=== PATIENT | female | born 1985 | race Two or more races ===

== ENCOUNTER → 2019-06-18 | Emergency (ER) | payer OTHER ==
[~2019-06-18] VITALS: Ht 162.6 cm; Wt 59.0 kg
[2019-06-18 16:20] VITALS: BP 118/74
--- NOTE | 2019-06-18 16:20 | NUR ---
ED Nurse Note: pt brought in by ambulance assisted by [employer] due to behavior complaints. pt c/o Lt foot pain 03/07. per [employer] pt was running around street. pt aao x4 and ambulatory. skin clean and intact. pt is refusing to speak, however, pt says yes or no only.
--- NOTE | 2019-06-18 16:21 | NUR ---
HAND-OFF: Report given to XIMENA Garcia to start the care.
--- NOTE | 2019-06-18 17:14 | Emergency Room Report ---
History of Present Illness General Chief Complaint: Lower Back Pain or Injury Source: Patient Present Illness HPI 34 YO Female presents to the ED c/O in severity right foot pain during initial triage. During exam and evaluation pt. denies pain in the foot, states it was stepped on but it is no longer hurting her. pt. denies medical complaints other than right ear discomfort and reports frequently having clogged ears and using OTC ear drops. denies fevers or chills. Denies CP or SOB. Denies open wounds or bleeding. Denies YARBROUGH, Neck or back pain or abdominal pain. Denies changes to or loss of hearing. Denies ear trauma. Allergies: Coded Allergies: NO KNOWN DRUG ALLERGIES (Unverified Allergy, Unknown, 03/14/15) Patient History Past Medical History: see triage record Past Surgical History: none Pertinent Family History: none Now: No Reviewed Nursing Documentation: PMH: Agreed; PSxH: Agreed Nursing Documentation-PMH Past Medical History: No Stated History Hx Cardiac Problems: No Hx Hypertension: No Hx Pacemaker: No Hx Asthma: No Hx COPD: No Hx Diabetes: No Hx Cancer: No Hx Gastrointestinal Problems: No Hx Dialysis: No Hx Neurological Problems: No Hx Cerebrovascular Accident: No Hx Seizures: No Review of Systems All Other Systems: negative except mentioned in HPI Physical Exam Vital Signs Date Time Temp Pulse Resp B/P (MAP) Pulse Ox O2 Delivery O2 Flow Rate FiO2 06/18/19 16:09 98.4 86 16 118/74 (89) 100 Room Air Sp02 EP Interpretation: reviewed, normal General Appearance: no apparent distress, alert, GCS 15, non-toxic Head: normocephalic, atraumatic Eyes: bilateral eye normal inspection, bilateral eye PERRL ENT: hearing grossly normal, normal voice, TMs + canals normal Neck: full range of motion, no bony tend Respiratory: chest non-tender, lungs clear, normal breath sounds, no respiratory distress, no accessory muscle use, no wheezing, speaking full sentences Cardiovascular #1: regular rate, rhythm, normal capillary refill Gastrointestinal: non tender, soft Musculoskeletal: back normal, gait/station normal, normal range of motion, non- tender Neurologic: alert, oriented x3, responsive, motor strength/tone normal, sensory intact, speech normal, grossly normal Psychiatric: judgement/insight normal Skin: normal inspection Medical Decision Making PA Attestation Dr. Whatley is my supervising Physician whom patient management has been discussed with. Diagnostic Impression: Primary Impression: Medical clearance for incarceration ER Course 34 YO Female presents to the ED c/O in severity right foot pain during initial triage. During exam and evaluation pt. denies pain in the foot, states it was stepped on but it is no longer hurting her. pt. denies medical complaints other than right ear discomfort and reports frequently having clogged ears and using OTC ear drops. denies fevers or chills. Denies CP or SOB. Denies open wounds or bleeding. Denies YARBR[place], Neck or back pain or abdominal pain. Denies changes to or loss of hearing. Denies ear trauma. Ddx considered but are not limited to Head Trauma, [place], ACS, SI/HI, URI, SAH, Fractures, Dislocations, Tazer barbs, Abrasions. Vital signs: are WNL, pt. is afebrile H&PE are most consistent with: normal limited physical examination. ORDERS: none required at this time, the diagnosis is clinical ED INTERVENTIONS: None required at this time. DISCHARGE: At this time pt. is stable for d/c to law enforcement. Will provide printed patient care instructions, and any necessary prescriptions. Care plan and follow up instructions have been discussed with the patient prior to discharge. Last Vital Signs Date Time Temp Pulse Resp B/P (MAP) Pulse Ox O2 Delivery O2 Flow Rate FiO2 06/18/19 16:20 98.4 82 16 118/74 100 Room Air Disposition: HOME, SELF-CARE Condition: Stable Departure Forms: Nursing Home Clearance Patient Instructions: Medical Screening Exam Additional Instructions: Take any previously prescribed medications as directed. ~ ~ An emergent medical condition has not been identified based on this patients presentation, exam and any necessary testing/imaging. The patient is determined to be stable for outpatient follow-up and management by a primary care provider. Follow up with a Primary Care Provider in 3-5 days, even if your symptoms have resolved. Return sooner to ED if new symptoms occur, or current symptoms become worse. - Please note that this Emergency Department Report was dictated using [employer] adjunct faculty technology software, occasionally this can lead to erroneous entry secondary to interpretation by the dictation equipment. Antonia hTurman Jun 18, 2019 17:14
== END | disposition home or self-care (01) ==
LOC: EDUNIT# 16:08 → EDBD 16:12 → EMR 17:05
DX: M25.571 Pain in right ankle and joints of right foot (principal)
CPT/HCPCS: 99283